=== PATIENT | female | born 1960 | race Caucasian/White ===

== ENCOUNTER → 2016-10-08 | Outpatient (CLI) | payer BC | LOC: RAD 08:58 | PROVIDERS: ATTEND Family Medicine | DX: N60.02 Solitary cyst of left breast (principal) | CPT/HCPCS: 76642; G0206 ==

== ENCOUNTER → 2017-01-06 | Outpatient (CLI) | payer BC ==
--- NOTE | 2017-01-06 16:52 | Diagnostic Imaging Report ---
INDICATION: Right hip pain, no known injury. DISCUSSION: Two views of the right hip were obtained, no comparison. Mild degenerative changes are noted with mild joint space narrowing. No fracture or dislocation. Alignment is anatomic. Soft tissues are unremarkable. IMPRESSION: 1. Mild right hip degenerative joint disease. Dictated by: Dictated on workstation # [id number]
== END ==
LOC: RAD 15:06
PROVIDERS: ATTEND Family Medicine
DX: M25.551 Pain in right hip (principal)
CPT/HCPCS: 73502